=== PATIENT | male | born 2000 | race Hispanic/Latino ===

== ENCOUNTER 2021-05-01 16:29 | Emergency (ER) | payer SELFPAY ==
[2021-05-01] MEDS ORDERED: Cephalexin 250 MG CAP ONE (17:01)
== END 2021-05-01 17:11 | disposition home or self-care (01) ==
LOC: BURERS 16:29
DX: S61.211A Laceration without foreign body of left index finger without damage to nail, initial encounter (principal); S61.012A Laceration without foreign body of left thumb without damage to nail, initial encounter; W29.3XXA Contact with powered garden and outdoor hand tools and machinery, initial encounter
CPT/HCPCS: 99282